=== PATIENT | female | born 1955 | race African-American/Black ===

== ENCOUNTER 2017-12-08 19:36 | Inpatient (IN) | payer BC ==
--- NOTE | 2017-12-08 21:00 | PDOC.FPRHP ---
- History of Present Illness Chief Complaint: Feeling Ill History of Present Illness: 62 yo AA female, w/ pmh of HTN and Depression. comes in not feeling well and having productive cough. Pt reports having bloody productive cough. Reports starting to feel ill monday. Reported having cough. Then started having episodes of nauseas/vomiting. Has episodes of 2 loose stools the last few days as well. Has not been eating much do to vomiting. Says she vomits everytime she eats. Reports feeling feverish and having chills. Pt reports being weak. Having hard time moving around today. Has been feeling generalized tiredness for the last few months. Denies any recent unexpected weight loss. Pt smokes currently. Denies being diagnosed with COPD. No other concerns or complaints at this time - Allergies/Adverse Reactions Allergies Allergy/AdvReac Type Severity Reaction Status Date / Time acetaminophen Allergy Unverified 12/08/17 21:30 [From Darvocet-N] iodine Allergy Rash Unverified 12/08/17 22:38 propoxyphene Allergy Hives Unverified 12/08/17 22:38 [From Darvocet-N] - Home Medications Medication Instructions Recorded Confirmed Type Diltiazem HCl [Cartia XT] 180 mg PO DAILY 12/08/17 12/08/17 History FLUoxetine HCl 60 mg PO DAILY 12/08/17 12/08/17 History Lisinopril/Hydrochlorothiazide 1 tab PO DAILY 12/08/17 12/08/17 History [Lisinopril-Hctz 20-12.5 mg Tab] - History PMHx: HTN, GERD, Depression PSHx: Hysterectomy and Tubal Ligation FHx: Social: Quit smoking 2 weeks ago, Occasional beer, no illicit drug use - Review of Systems General: reports: fever/chills, fatigue. denies: weight/appetite/sleep changes , night sweats Eyes: denies: eye pain, vision changes ENT: denies: nasal congestion, rhinorrhea Respiratory: reports: cough (Bloody cough), shortness of breath. denies: congestion, exercise intolerance, other Cardiovascular: denies: chest pain, palpitation, edema, paroxysmal nocturnal dyspnea, orthopnea Gastrointestinal: reports: nausea, vomiting, diarrhea. denies: constipation, abdominal pain, GI bleeding Genitourinary: denies: incontinence, dysuria, polyuria, discharge Skin: denies: rashes, lesions, jaundice, itching Musculoskeletal: denies: pain, tenderness, stiffness, swelling Neurological: reports: weakness. denies: numbness, syncope, seizure Psychological: reports: depression. denies: anxiety - Vital signs BP: [118/53] HR: [78] RR: [17] Tmax: [99.7] Pox: [97]% on [ra] Wt: [99.7 kg ] - Physical Exam Constitutional: NAD, awake, alert and oriented, well developed -Constitutional: Pt appears ill, weak HEENT: normocephalic and atraumatic, PERRLA, conjunctiva clear -HEENT: mucous membranes dry Neck: supple, trachea midline, no LAD, no thyromegaly, no bruits Chest: no-tender to palpation, no lesions Heart: RRR, no murmurs/rubs/gallops, no edema -Lungs: Mild rales noted bilaterally. Decreased breath movement in all lungs. No wheezing noted Abdomen: soft, bowel sounds present -Abdomen: mildly tender in the left quadrant Musculoskeletal: normal structure, normal tone, ROM grossly normal Neurological: no focal deficit, normal sensation Skin: no rash/lesions, good turgor -Skin: cap refill around 3-4. Heme/Lymphatic: no unusual bruising or bleeding, no purpura, no petechia Psychiatric: normal mood and affect, good judgment and insight, intact recent and remote memory FMR H&P: Results - Labs Result Diagrams: 12/09/17 03:43 12/09/17 03:43 Lab results: Laboratory Tests 12/08/17 12/08/17 12/08/17 14:26 14:26 14:26 WBC 14.9 H Hgb 10.2 L Hct 32.1 L MCV 75.5 L Plt Count 424 H Neutrophils % 74.3 Neutrophils % (Manual) Not Reportable Sodium 135 L Potassium 3.4 L Creatinine 1.60 H Total Bilirubin 2.4 H AST 59 H ALT 63 H Alkaline Phosphatase 122 Troponin I B-Natriuretic Peptide Less than 10.0 Ur Specific Jackman Urine Protein Urine Glucose (UA) Urine Ketones Urine Blood Urine Nitrite Urine Bilirubin Ur Squamous Epith Cells Urine Bacteria Other Casts Salicylates Acetaminophen 12/08/17 12/08/17 12/08/17 14:26 14:26 15:45 WBC Hgb Hct MCV Plt Count Neutrophils % Neutrophils % (Manual) Sodium Potassium Creatinine Total Bilirubin AST ALT Alkaline Phosphatase Troponin I Less than 0.010 B-Natriuretic Peptide Ur Specific Jackman 1.025 Urine Protein > or equal to 300 H Urine Glucose (UA) 100 H Urine Ketones 15 H Urine Blood Trace H Urine Nitrite Positive H Urine Bilirubin Moderate H Ur Squamous Epith Cells 4-6 H Urine Bacteria 2+ H Other Casts 21-50 MIXED CASTS H Salicylates Less than 8.0 L Acetaminophen Less than 6.0 L - Radiology Interpretation CT scan - abdomen Status: image reviewed by me, report reviewed by me (1. No CT evidence of ut calculi or obstruction. Calcified granulomas in liver and spleen. Small hiatal hernia. Sigmoid diverticulosis. 2 cm left adrenal mass) Chest x-ray Status: image reviewed by me, report reviewed by me (RUL opacity. Presumed represent PNA. f/u recommend. Doesn't resolve get CT Evidence of old (inactive) r-sided granulmatous disease) FMR H&P: A/P - Problem List (1) Community acquired pneumonia Current Visit: Yes Status: Acute Code(s): J18.9 - PNEUMONIA, UNSPECIFIED ORGANISM (2) Microcytic anemia Current Visit: Yes Status: Acute Code(s): D50.9 - IRON DEFICIENCY ANEMIA, UNSPECIFIED (3) HTN (hypertension) Current Visit: Yes Status: Acute Code(s): I10 - ESSENTIAL (PRIMARY) HYPERTENSION (4) Depression Current Visit: Yes Status: Acute Code(s): F32.9 - MAJOR DEPRESSIVE DISORDER , SINGLE EPISODE, UNSPECIFIED (5) Mild dehydration Current Visit: Yes Status: Acute Code(s): E86.0 - DEHYDRATION (6) Elevated bilirubin Current Visit: Yes Status: Acute Code(s): R17 - UNSPECIFIED JAUNDICE (7) Elevated LFTs Current Visit: Yes Status: Acute Code(s): R79.89 - OTHER SPECIFIED ABNORMAL FINDINGS OF BLOOD CHEMISTRY (8) SHERI (acute kidney injury) Current Visit: Yes Status: Acute Code(s): N17.9 - ACUTE KIDNEY FAILURE, UNSPECIFIED - Plan Sepsis 2/2 RUL CAP vs UTI - Of note, patient initially presented to [place] ED with fever of 101 and leukocytosis. Blood and urine cultures obtained. - CXR shows RUL opacity and pt does have a history of tobacco abuse. Consider nonurgent CT chest. - Obtain urine Strep and Legionalla Ag, will adjust abx depending on results - Trend CBCs - Continue Ceftriaxone and Azithromycin. Maintenance fluids. Duonebs scheduled q6 hrs. -Having bloody sputum with generalized weakness for 2 months and granulomas noted on CXR and in Liver and Spleen. Concern for TB. AFB smear and culture pending. Quanteferon pending Possible viral gastroenteritis - Maintenance IVF. Zofran PRN. Continue to monitor. . UTI - Pt has fever, leukocytosis, frequency, and UA suggestive of infection. Urine culture obtained. Continue Ceftriaxone. Elevated LFTs including hyperbilirubinemia - CT abd shows granulomas of liver. Obtain direct bilirubin and RUQ US. - Obtain HIV, RPR, and hepatitis panel. -Also concern for TB which we are testing as above SHERI vs CKD - Unclear baseline function. Checking urine Na and Urine Cr at this time. -Pt also mildly dehydrated. Maintenance fluids as above. Daily CMP -Possibly due to infection as well. Urine cx pending -Has casts in UA and bili Mild Dehydration -Plan as above Microcytic anemia - Obtain iron studies Thrombocytosis - Likely reactive, trend. GERD - Famotidine HTN - Resume home meds. Depression -continue home med FULL code PPx: Lovenox for VTE and famotidine for GI. FMR H&P: Upper Level - Pertinent history 62 yo AAF w/ PMH of HTN, GERD, and tobacco abuse presents c/o 3 day history of nausea, vomiting, diarrhea, inability to tolerated PO intake, productive cough, and overall malaise. Pt states that when she woke up 3 days ago she vomited after breakfast and noticed a productive cough with blood tinged sputum. Since then, pt endorses fevers, chills, NVD, suprapubic pain. Pt denies MACIEL, CP, SOB, sick contacts, or recent travel. - Pertinent findings BP 108/66 P 79 R 16 O2 96% on RA T 99.7 Gen: Well nourished, NAD, A&Ox3 CV: RRR, radial pulses equal BL Resp: unlabored, good inspiratory effort, CTAB Abd: BS+, negative sawant's, mild suprapubic TTP - Plan Date/Time: 12/08/172057 I, Rowdy Dong MD, have evaluated this patient and agree with findings/plan as outlined by general internist and physician leader resident. Pertinent changes/additions are listed here. 1. Sepsis 2/2 RUL CAP vs UTI - Of note, patient initially presented to [facility] ED with fever of 101 and leukocytosis. Blood and urine cultures obtained. - CXR shows RUL opacity and pt does have a history of tobacco abuse. Consider nonurgent CT chest. - Obtain urine Strep and Legionalla Ag - Trend CBCs - Continue Ceftriaxone and Azithromycin. Maintenance fluids. Duonebs PRN. -Having bloody sputum with generalized weakness for 2 months and granulomas noted on CXR and in Liver and Spleen. Concern for TB. AFB smear and culture pending. Quanteferon pending 2. Possible viral gastroenteritis - Maintenance IVF. Zofran PRN. Continue to monitor. 3. UTI - Pt has fever, leukocytosis, frequency, and UA suggestive of infection. Urine culture obtained. Continue Ceftriaxone. 4. Elevated LFTs including hyperbilirubinemia - CT abd shows granulomas of liver. Obtain direct bilirubin and RUQ US. - Obtain HIV, RPR, and hepatitis panel. 5. SHERI vs CKD - Unclear baseline function. Obtain urine studies. 6. Microcytic anemia - Obtain iron studies 7. Thrombocytosis - Likely reactive, trend. 8. GERD - Famotidine 9. HTN - Resume home meds. FULL code PPx: Lovenox for VTE and famotidine for GI. Attending Addendum - Attending Addendum Date/Time: 12/09/17 1966 I personally evaluated the patient and discussed the management with Dr. Flower I agree with the History, Examination, Assessment and Plan documented above with any addition or exceptions noted below. Hepatic Granulomas consider extensive differential in this patient setting Tuberculososis,sarcoid,primary biliarry cirrhosis,Q fever,Brucellosis, fungal disease and underlying malignancy will ask for GI consultation. AFB smear and cultures to be obtained.
[2017-12-08] MEDS ORDERED: Ondansetron ODT 4 MG TAB ONE (21:01)
[2017-12-08] MEDS ORDERED: Ondansetron PF 4 MG/2 ML Vial IVP PRN ×2 (22:39→22:52)
[2017-12-08] MEDS ORDERED: Ondansetron ODT 4 MG TAB SL PRN (22:39)
[2017-12-08] MEDS ORDERED: Acetaminophen 325 MG TAB PO PRN ×2 (22:39→22:52)
[2017-12-08] MEDS ORDERED: cefTRIAXone\\ROCEPHIN 1 GM in Sodium Chloride 0.9% 100 ML IVPB SCH (22:52)
[2017-12-08] MEDS ORDERED: Ondansetron ODT 4 MG TAB PO PRN (22:52)
[2017-12-08] MEDS ORDERED: Acetaminophen 650 MG Suppository PR PRN (22:52)
[2017-12-08] MEDS ORDERED: Bisacodyl 10 MG SUPP PR PRN (22:52)
[2017-12-08] MEDS ORDERED: Bisacodyl 5 MG TAB PO PRN (22:52)
[2017-12-08 22:58] VITALS: BMI 38.6
[2017-12-08] MEDS ORDERED: Azithromycin 250 MG TAB PO SCH (23:00)
[2017-12-08 23:36] LABS: Bilirubin, Direct 0.8 mg/dL (0.1-0.3)
[2017-12-08 23:55] LABS: Ferritin 77.95 ng/mL (10-291)
[2017-12-09] MEDS: Sodium Chloride 0.9% 1,000 ML IV SCH ×3 (00:14→21:18)
[2017-12-09 00:30] LABS: HIV (1/2) Antibody/Antigen Non-Reactive (NonReactive); HIV 1/2 INDEX 0.11 S/CO (<1.00)
[2017-12-09 04:02] LABS: #Lymphocytes 1.6 thou/uL (1.20-3.40); #Monocytes 1.1 thou/uL (0.11-0.59); #Neutrophils 9.5 thou/uL (1.40-6.50); %Basophils 0.4 % (0.0-1.0); %Eosinophils 0.3 % (0.0-10.0); %Lymphocytes 12.8 % (21.0-51.0); %Monocytes 8.6 % (0.0-10.0); %Neutrophils 77.9 % (42.0-75.0); Hemoglobin 8.8 g/dL (12.0-16.0); Mean Corpuscular HGB CONC 33.1 g/dL (32.0-36.0); Mean Corpuscular Hemoglobin 26.2 pg (27.0-31.0); Mean Corpuscular Volume 79.1 fl (81.0-99.0); Mean Platelet Volume 7.4 fL (7.4-10.4); Platelet Count 374 thou/uL (130-400); RBC Distribution Width 16.6 % (11.5-14.5); Red Blood Cell (RBC) Count 3.35 mill/uL (4.20-5.40); White Blood Cell (WBC) Count 12.2 thou/uL (4.8-10.8)
[2017-12-09 04:19] LABS: ALT (SGPT) 61 U/L (8-55); AST (SGOT) 50 U/L (5-34); Albumin 3.4 g/dL (3.4-4.8); Alkaline Phosphatase 109 U/L (40-150); Anion Gap 12 mmol/L (10-20); BUN (Urea Nitrogen) 15 mg/dL (9.8-20.1); Bilirubin, Total 1.8 mg/dL (0.2-1.2); Calc. Creatinine Clearance 65 mL/min (70-130); Calcium 8.8 mg/dL (7.8-10.44); Carbon Dioxide 22 mmol/L (23-31); Chloride 101 mmol/L (98-107); Estimated GFR-MDRD 46; Globulin 3.4 g/dL (2.4-3.5); Glucose 117 mg/dL (80-115); Potassium 3.1 mmol/L (3.5-5.1); Protein, Total 6.8 g/dL (6.0-8.3); Sodium 132 mmol/L (136-145)
[2017-12-09] MEDS ORDERED: cefTRIAXone\\ROCEPHIN 1 GM, Syringe 0.4 ML in Sterile Water 9.6 ML SLOW IVP SCH (06:00)
[2017-12-09 06:40] LABS: Creatinine, Urine 88.62 mg/dL (47-110)
[2017-12-09 07:12] LABS: Legionella Urinary Ag Negative (Negative); Strep pneumo Urine Ag NEGATIVE (NEGATIVE)
--- NOTE | 2017-12-09 08:47 | ULT ---
ABDOMINAL ULTRASOUND: DATE: 12/09/17. PROVIDED CLINICAL HISTORY: Elevated liver enzymes. FINDINGS: The liver demonstrates no evidence for mass or intrahepatic biliary ductal dilatation. Visualized pa ncreas, IVC, and abdominal aorta appear normal. The kidneys demonstrate no hydronephrosis or mass. The spleen is not enlarged and demonstrates no focal abnormality. Gallbladder demonstrates no stones , wall thickening, or pericholecystic fluid. The common duct is mildly prominent, measuring about 7 mm. IMPRESSION: Mildly prominent common duct, nonspecific. If there is concern for biliary obstructive change, consi maylin MRCP. POS: [facility]
[2017-12-09] MEDS: FLUoxetine HCl 20 MG CAP PO SCH (09:31)
[2017-12-09] MEDS: Lisinopril/Hydrochlorothiazide 20 mg/12.5 mg Tablet PO SCH (09:31)
--- NOTE | 2017-12-09 13:30 | PDOC.FM ---
- Subjective Subjective: No complaints this am. Feels better. Has not vomited since yesterday. - Objective MAR Reviewed: Yes Vital Signs & Weight: Vital Signs (12 hours) Temp Pulse Resp BP BP Pulse Ox 12/09/17 09:31 81 115/64 12/09/17 08:00 98.3 F 81 20 115/64 95 12/09/17 07:12 88 16 95 Weight Weight 98.883 kg Result Diagrams: 12/09/17 03:43 12/09/17 03:43 <Kateryna Kathleen - Last Filed: 12/09/17 13:22> - Objective Vital Signs & Weight: Vital Signs (12 hours) Temp Pulse Resp BP BP Pulse Ox 12/09/17 13:38 84 18 98 12/09/17 09:31 81 115/64 12/09/17 08:00 98.3 F 84 18 115/64 98 12/09/17 07:12 88 16 95 Weight Weight 98.883 kg I&O: 12/08/17 12/09/17 12/10/17 06:59 06:59 06:59 Intake Total 240 Balance 240 Result Diagrams: 12/09/17 13:44 12/09/17 03:43 <Jorge Hendricks - Last Filed: 12/09/17 17:07> Phys Exam - Physical Examination Constitutional: NAD HEENT: PERRLA, moist MMs Respiratory: no wheezing crackles right side Cardiovascular: RRR, no significant murmur Gastrointestinal: soft, non-tender, no distention, positive bowel sounds Musculoskeletal: no edema, pulses present Neurological: non-focal, normal sensation Psychiatric: normal affect, A&O x 3 Skin: no rash, cap refill <2 seconds <Kateryna Kathleen - Last Filed: 12/09/17 13:22> Dx/Plan (1) Hyperbilirubinemia Code(s): E80.6 - OTHER DISORDERS OF BILIRUBIN METABOLISM Status: Acute (2) Granulomatous disease Code(s): D71 - FUNCTIONAL DISORDERS OF POLYMORPHONUCLEAR NEUTROPHILS Status: Acute (3) Adrenal mass Status: Acute (4) SHERI (acute kidney injury) Code(s): N17.9 - ACUTE KIDNEY FAILURE, UNSPECIFIED Status: Acute (5) Community acquired pneumonia Code(s): J18.9 - PNEUMONIA, UNSPECIFIED ORGANISM Status: Acute (6) Depression Code(s): F32.9 - MAJOR DEPRESSIVE DISORDER, SINGLE EPISODE, UNSPECIFIED Status : Acute (7) Elevated LFTs Code(s): R79.89 - OTHER SPECIFIED ABNORMAL FINDINGS OF BLOOD CHEMISTRY Status : Acute (8) HTN (hypertension) Code(s): I10 - ESSENTIAL (PRIMARY) HYPERTENSION Status: Acute (9) Microcytic anemia Code(s): D50.9 - IRON DEFICIENCY ANEMIA, UNSPECIFIED Status: Acute (10) Mild dehydration Code(s): E86.0 - DEHYDRATION Status: Acute - Plan Plan: Sepsis 2/2 RUL CAP vs UTI -Concern for tb, AFB smear and culture pending. Quanteferon pending - Of note, patient initially presented to [place] ED with fever of 101 and leukocytosis. Blood and urine cultures obtained. - CXR shows RUL opacity and right hilar lymph node prominence -urine Strep and Legionalla Ag negative - Continue Ceftriaxone and Azithromycin. Maintenance fluids. Duonebs scheduled q6 hrs. Hyperbilirubinemia and elevated LFTs -direct and indirect bilirubin elevated -Abdominal US showed marked prominence of the common bile duct -Will order hemolysis labs due to elevated indirect bilirubin (haptoglobin, LDH , reticulocyte count, peripheral smear). -Abdominal CT showed calcified granulomas-ordered HIV, RPR, Hepatitis panel -GI consulted. Appreciate recommendations Adrenal Mass- -Found incidentally. Adrenal protocol CT with and without contrast recommended nonemergently. Possible viral gastroenteritis - Maintenance IVF. Zofran PRN. Continue to monitor. UTI - Pt has fever, leukocytosis, frequency, and UA suggestive of infection. Urine culture obtained. Continue Ceftriaxone. SHERI vs CKD - Unclear baseline function. Improved with fluids. -Pt also mildly dehydrated. Maintenance fluids as above. Daily CMP Mild Dehydration -Plan as above Microcytic anemia - Iron low, Ferritin low normal, TIBC wnl-->may be early signs of iron deficient anemia Thrombocytosis - Likely reactive, trend. GERD - Famotidine HTN - Resume home meds. Depression -continue home med <Kateryna Kathleen - Last Filed: 12/09/17 13:22> (1) Community acquired pneumonia Code(s): J18.9 - PNEUMONIA, UNSPECIFIED ORGANISM Status: Acute (2) Microcytic anemia Code(s): D50.9 - IRON DEFICIENCY ANEMIA, UNSPECIFIED Status: Acute (3) HTN (hypertension) Code(s): I10 - ESSENTIAL (PRIMARY) HYPERTENSION Status: Acute (4) Depression Code(s): F32.9 - MAJOR DEPRESSIVE DISORDER, SINGLE EPISODE, UNSPECIFIED Status : Acute (5) Mild dehydration Code(s): E86.0 - DEHYDRATION Status: Acute (6) Elevated bilirubin Code(s): R17 - UNSPECIFIED JAUNDICE Status: Acute (7) Elevated LFTs Code(s): R79.89 - OTHER SPECIFIED ABNORMAL FINDINGS OF BLOOD CHEMISTRY Status : Acute (8) SHERI (acute kidney injury) Code(s): N17.9 - ACUTE KIDNEY FAILURE, UNSPECIFIED Status: Acute <Jorge Hendricks - Last Filed: 12/09/17 17:07> Attending Addendum - Attending Addendum Date/Time: 12/09/17 2595 I personally evaluated the patient and discussed the management with Dr. Kathleen I agree with the History, Examination, Assessment and Plan documented above with any addition or exceptions noted below.. R/O Tuberculosis Patient in respiratory isolation.Consulted GI for recommendation regard abnormal hepatic finding lab and US CT with granulomas patient states has had prior screening colonoscopy not sure timeframe. <Jorge Hendricks - Last Filed: 12/09/17 17:07>
[2017-12-09 14:00] LABS: Reticulocyte Count 1.7 % (0.5-1.5)
[2017-12-09 14:53] LABS: Anisocytosis SLIGHT = 6-15 cells (100X) (0-5/hpf); Band 2 % (5-11); Hemoglobin 8.5 g/dL (12.0-16.0); Hypochromia SLIGHT = 6-15 cells (100X) (0-5/hpf); Lymphocytes 9 % (21-51); MDiff Complete? YES; Mean Corpuscular HGB CONC 33.3 g/dL (32.0-36.0); Mean Corpuscular Hemoglobin 26.2 pg (27.0-31.0); Mean Corpuscular Volume 78.7 fl (81.0-99.0); Mean Platelet Volume 7.3 fL (7.4-10.4); Monocytes 5 % (0-10); Neutrophil 84 % (42-75); PLT Morphology Comment Appears Adequate; Platelet Count 389 thou/uL (130-400); RBC Distribution Width 16.8 % (11.5-14.5); Red Blood Cell (RBC) Count 3.25 mill/uL (4.20-5.40); White Blood Cell (WBC) Count 8.4 thou/uL (4.8-10.8)
[2017-12-09] MEDS: cefTRIAXone\\ROCEPHIN 1 GM, Syringe 0.4 ML in Sterile Water 9.6 ML SLOW IVP SCH (18:42)
--- NOTE | 2017-12-09 20:17 | CON ---
DATE OF CONSULTATION: 12/09/2017 REASON FOR CONSULTATION: Elevated LFTs, abnormal GI imaging. CONSULTING PHYSICIAN: Kateryna Kathleen MD HISTORY OF PRESENT ILLNESS: The patient is a 62-year-old -Dominican female with past medical h istory of hypertension, depression and GERD, presenting with complaints of nausea, vomiting, and hemo ptysis. She states that she was in her usual state of health until approximately 3 days ago when she began to experience acute onset of nausea, vomiting, and diarrhea. She would have approximately 3-4 episodes of nonbloody emesis per day that was usually 30-45 minutes after she would eat anything. T his was also associated with approximately 2-3 liquid bowel movements per day over the same time howard od with no overt blood seen in her stool. She also endorses increased periumbilical abdominal pain d uring the same time. Characterizes a cramping type sensation, nonradiating, intermittent with a maxi mum severity of approximately 5/10. There was no clear alleviating or exacerbating factors for this abdominal pain. However, yesterday she did experience increased nausea and vomiting and after a part icular episode of vomiting in the morning, she had profound weakness and what sounds like a presyncop al event that prompted her to seek healthcare assistance in the [place] ER. While in the ER, she was noted to have a significant anemia as well as observation that she was having hemoptysis and elev ated LFTs, which prompted admission to [place] [facility]. After administration of antiemetics and antidi arrheal medications, she has had no further episodes of nausea, vomiting or diarrhea. However, she c ontinues to have coughing episodes with blood tinged sputum. She currently denies any nausea, vomiti ng, fever, GI bleeding, dysphagia, odynophagia, jaundice, encephalopathy, lower extremity edema/swell ing or increased swelling in her abdomen. REVIEW OF SYSTEMS: A 10-category review of systems was obtained with all responses negative except f or those listed in the HPI. PAST MEDICAL HISTORY: As per HPI. PAST SURGICAL HISTORY: Hysterectomy and bilateral tubal ligation. FAMILY HISTORY: Lung cancer (mother), diabetes, denies any GI malignancy. SOCIAL HISTORY: Quit smoking approximately 2 weeks ago. Drinks approximately 2-3 drinks every week. Denies any illicit drug use. OUTPATIENT MEDICATIONS: Reviewed. ALLERGIES: DARVOCET, IODINE, PROPOXYPHENE. PHYSICAL EXAMINATION: VITAL SIGNS: Temperature 98.3, pulse 84, blood pressure 115/64, respiratory rate 18, satting 98% on room air. GENERAL: The patient sitting in a chair at bedside, in no acute distress. No conversational dyspnea . Alert and oriented x4. NECK: Supple. No JVD noted. CARDIOVASCULAR: Regular rate and rhythm with no discernible murmurs, gallops or rubs. RESPIRATORY: Clear to auscultation bilaterally with no discernible wheezes or rales. ABDOMEN: Normoactive bowel sounds, soft, nontender, and nondistended. EXTREMITIES: No cyanosis, clubbing or edema. LABORATORY DATA: CBC with a white blood cell count 12.2, hemoglobin 8.8, hematocrit 26.4, and platel ets 374. Chemistry with a sodium of 132, potassium 3.1, chloride 101, CO2 of 22, BUN 15, creatinine 1.39, glucose 117, AST 50, ALT 61, alkaline phosphatase 109, total bilirubin 1.8, direct bilirubin 0. 8, albumin 3.4. Iron 26, TIBC 310, ferritin 77, LDH 325. IMAGING DATA: CT of the abdomen and pelvis obtained on 12/08/2017 showed patchy infiltrates in the l ower lung mendez, calcified granulomas were also seen in the liver and spleen with no calcified galls tones seen. There was no pericolonic inflammatory changes nor any abnormalities in the kidneys, uret ers, or urinary bladder. A right upper quadrant ultrasound obtained on 12/09/2017 did not show any e vidence of mass or intrahepatic biliary ductal dilatation. The spleen was not enlarged and demonstra cielo no focal abnormality. The gallbladder did not show any abnormality as well, but the common bile duct did measure approximately 7 mm in diameter. ASSESSMENT AND PLAN: The patient is a 62-year-old -Dominican female with past medical history of hypertension, depression, and gastroesophageal reflux disease, presenting with abnormal GI imaging and elevated liver function tests. Abnormal GI imaging/abnormal liver function tests. The patient is presenting with the acute onset of nausea, vomiting, diarrhea, and hemoptysis within the last 3-4 days associated with subjective fever s and chills. She denies any overt gastrointestinal blood loss and denies any prior history of liver disease; however, CT abdomen and pelvis obtained on 12/08/2017 showed evidence of calcified granulom as within the liver and the spleen concerning for possible infective process. Given the constellatio n of symptoms, the imaging and symptoms are most consistent with an active pulmonary TB infection wit h spread to both the liver and the spleen. However, differential could include syphilis, histoplasmo sis, sarcoidosis, polyarteritis nodosa, Mj's granulomatosis, primary biliary cirrhosis (less lik lemuel), liver and splenic abscesses (much less likely given her current clinical condition) and/or perla gnancy (less likely). RECOMMENDATIONS: 1. We would continue infectious workup to include evaluation for tuberculosis and syphilis. We woul d also include histoplasmosis as a possible source. 2. With the indirect hemoglobin and hyperbilirubinemia, intravascular hemolysis cannot be ruled out. We would obtain hemolysis labs for possible generation of these labs. 3. The current labs are not indicative of an obstructive process with the common bile duct at the up per limit of normal at 7 mm. Choledocholithiasis is unlikely at this point. 4. We would also obtain an angiotensin converting enzyme lab as well as C-ANCA and P-ANCA for sarcoi dosis, Mj's and polyarteritis nodosa respectively. 5. If the above workup is negative, would then consider proceeding to a full liver workup to obtain serologies for autoimmune hepatitis, Gabriel disease, alpha 1 antitrypsin deficiency. We will continue to follow. Please call with any questions.
[2017-12-09] MEDS: Azithromycin 250 MG TAB PO SCH (21:18)
[2017-12-10] MEDS ORDERED: Potassium Chloride 20 MEQ TAB PO SCH (05:00)
--- NOTE | 2017-12-10 07:03 | PDOC.FM ---
- Subjective Subjective: No acute complaints this morning and no acute events overnight. States she feels better. - Objective MAR Reviewed: Yes Vital Signs & Weight: Vital Signs (12 hours) Temp Pulse Resp BP Pulse Ox 12/10/17 00:03 91 16 94 L 12/10/17 00:00 99.6 F 88 18 145/68 H 99 12/09/17 20:00 99.0 F 84 18 138/58 L 97 12/09/17 19:15 85 16 96 Weight Weight 98.883 kg I&O: 12/09/17 12/10/17 12/11/17 06:59 06:59 06:59 Intake Total 480 Balance 480 Result Diagrams: 12/09/17 13:44 12/10/17 10:20 <Kateryna Kathleen - Last Filed: 12/10/17 13:21> - Objective Vital Signs & Weight: Vital Signs (12 hours) Temp Pulse Resp BP BP Pulse Ox 12/10/17 12:57 85 16 98 12/10/17 09:30 79 147/68 H 12/10/17 08:00 98.5 F 79 18 147/68 H 100 12/10/17 07:24 83 18 98 Weight Weight 98.883 kg I&O: 12/09/17 12/10/17 12/11/17 06:59 06:59 06:59 Intake Total 480 Balance 480 Result Diagrams: 12/09/17 13:44 12/10/17 10:20 <Jorge Hendricks - Last Filed: 12/10/17 14:43> Phys Exam - Physical Examination Constitutional: NAD HEENT: PERRLA, moist MMs Respiratory: no wheezing, no rales, clear to auscultation bilateral Cardiovascular: RRR, no significant murmur Gastrointestinal: soft, non-tender, no distention Musculoskeletal: no edema Psychiatric: normal affect, A&O x 3 Skin: no rash <Kateryna Kathleen - Last Filed: 12/10/17 13:21> Dx/Plan (1) Hyperbilirubinemia Code(s): E80.6 - OTHER DISORDERS OF BILIRUBIN METABOLISM Status: Acute (2) Granulomatous disease Code(s): D71 - FUNCTIONAL DISORDERS OF POLYMORPHONUCLEAR NEUTROPHILS Status: Acute (3) Adrenal mass Status: Acute (4) SHERI (acute kidney injury) Code(s): N17.9 - ACUTE KIDNEY FAILURE, UNSPECIFIED Status: Acute (5) Community acquired pneumonia Code(s): J18.9 - PNEUMONIA, UNSPECIFIED ORGANISM Status: Acute (6) Depression Code(s): F32.9 - MAJOR DEPRESSIVE DISORDER, SINGLE EPISODE, UNSPECIFIED Status : Acute (7) Elevated LFTs Code(s): R79.89 - OTHER SPECIFIED ABNORMAL FINDINGS OF BLOOD CHEMISTRY Status : Acute (8) HTN (hypertension) Code(s): I10 - ESSENTIAL (PRIMARY) HYPERTENSION Status: Acute (9) Microcytic anemia Code(s): D50.9 - IRON DEFICIENCY ANEMIA, UNSPECIFIED Status: Acute (10) Mild dehydration Code(s): E86.0 - DEHYDRATION Status: Acute - Plan Plan: Plan: Sepsis 2/2 RUL CAP vs UTI -Concern for tb, AFB smear and culture pending. Quanteferon pending -We will continue abx and broaden our infectious work-up to include: histoplasmosis, which is pending. -HIV negative, Syphilis labs pending - Blood and urine cultures NGTD - CXR shows RUL opacity and right hilar lymph node prominence -urine Strep and Legionalla Ag negative - Continue Ceftriaxone and Azithromycin. Maintenance fluids. Duonebs scheduled q6 hrs. Hyperbilirubinemia and Granulomatous disease -direct and indirect bilirubin elevated -CBD 7mm-->unlikely obstructive process -Hemolysis labs: LDH elevated and retic count; pending haptoglobin and peripheral smear -Will order a PANCA and CANCA to evaluate for sarcoid vs wegeners vs polyarteritis nodosa -If above workup negative will consider autoimmune hepatitis, wilsons disease, and alpha 1 antitrypsin -GI consulted. Appreciate recommendations above. Adrenal Mass- -Found incidentally. Adrenal protocol CT with and without contrast recommended nonemergently. Possible viral gastroenteritis - Maintenance IVF. Zofran PRN. Continue to monitor. UTI - Pt has fever, leukocytosis, frequency, and UA suggestive of infection. Urine culture obtained. Continue Ceftriaxone. SHERI vs CKD - Unclear baseline function. Improved with fluids. -Pt also mildly dehydrated. Maintenance fluids as above. Daily CMP Mild Dehydration -Plan as above Microcytic anemia - Iron low, Ferritin low normal, TIBC wnl-->may be early signs of iron deficient anemia Thrombocytosis - Likely reactive, trend. GERD - Famotidine HTN - Resume home meds. Depression -continue home med <Kateryna Kathleen - Last Filed: 12/10/17 13:21> (1) Community acquired pneumonia Code(s): J18.9 - PNEUMONIA, UNSPECIFIED ORGANISM Status: Acute (2) Microcytic anemia Code(s): D50.9 - IRON DEFICIENCY ANEMIA, UNSPECIFIED Status: Acute (3) HTN (hypertension) Code(s): I10 - ESSENTIAL (PRIMARY) HYPERTENSION Status: Acute (4) Depression Code(s): F32.9 - MAJOR DEPRESSIVE DISORDER, SINGLE EPISODE, UNSPECIFIED Status : Acute (5) Mild dehydration Code(s): E86.0 - DEHYDRATION Status: Acute (6) Elevated bilirubin Code(s): R17 - UNSPECIFIED JAUNDICE Status: Acute (7) Elevated LFTs Code(s): R79.89 - OTHER SPECIFIED ABNORMAL FINDINGS OF BLOOD CHEMISTRY Status : Acute (8) SHERI (acute kidney injury) Code(s): N17.9 - ACUTE KIDNEY FAILURE, UNSPECIFIED Status: Acute <Jorge Hendricks - Last Filed: 12/10/17 14:43> Attending Addendum - Attending Addendum Date/Time: 12/10/17 1440 I personally evaluated the patient and discussed the management with Dr. Kathleen I agree with the History, Examination, Assessment and Plan documented above with any addition or exceptions noted below. Complex patient appreciate GI recommendations. Patient may benefit from further diagnostic imaging when active Tuberculosis ruled in or out. Patient overall clinically improved and stressed importance of continued stay for appropriate work up and treatment. <Jorge Hendricks - Last Filed: 12/10/17 14:43>
[2017-12-10 08:10] LABS: Hepatitis A Total ABS Positive (Negative)
[2017-12-10] MEDS: FLUoxetine HCl 20 MG CAP PO SCH (09:29)
[2017-12-10] MEDS: Sodium Chloride 0.9% 1,000 ML IV SCH ×2 (09:29→14:39)
[2017-12-10] MEDS: Lisinopril/Hydrochlorothiazide 20 mg/12.5 mg Tablet PO SCH (09:30)
[2017-12-10 11:23] LABS: Potassium 3.1 mmol/L (3.5-5.1)
[2017-12-10] MEDS: cefTRIAXone\\ROCEPHIN 1 GM, Syringe 0.4 ML in Sterile Water 9.6 ML SLOW IVP SCH (17:20)
[2017-12-10] MEDS: Azithromycin 250 MG TAB PO SCH (20:47)
[2017-12-10 22:49] LABS: Syphilis Antibody INDETERMINATE (Nonreactive); Syphilis Titer Non-Reactive (Negative)
--- NOTE | 2017-12-10 23:42 | PRG ---
DATE OF SERVICE: 12/10/2017 REASON FOR CONSULTATION: Elevated LFTs, abnormal GI imaging. SUBJECTIVE: Patient states that she is feeling much better today with decreased cough, although she does state that her acid reflux has come back with mild heartburn at the substernal area. She also d id have one episode of loose/liquid stool concerning from return of her diarrhea. Otherwise, she den ies any vomiting, fevers, chills, abdominal pain, odynophagia, dysphagia, or constipation. OBJECTIVE: VITAL SIGNS: Temperature 98.4, pulse 75, blood pressure 152/69, respiratory rate 22, satting 97% on room air. GENERAL: Patient sitting at bedside in no acute distress. Alert and oriented x4. CARDIOVASCULAR: Regular rate and rhythm. RESPIRATORY: Clear to auscultation bilaterally. ABDOMEN: Normoactive bowel sounds, soft, nontender, nondistended. EXTREMITIES: No cyanosis, clubbing or edema. LABORATORY DATA: CBC with a white blood cell count of 8.4, hemoglobin 8.5, hematocrit 25.6, platelet s 389. Chemistry with sodium of 132, potassium 3.1, chloride 101, CO2 of 22, BUN 15, creatinine 1.39 . IMAGING DATA: No current GI imaging is available for review. ASSESSMENT AND PLAN: Patient is a 62-year-old -H[place] female with past medical history of h ypertension, depression, and gastroesophageal reflux disease presenting with abnormal gastrointestina l imaging and elevated liver function test. Abnormal gastrointestinal imaging/abnormal liver function test. Patient initially presented with chris sea, vomiting, diarrhea, hemoptysis, subjective fevers, and chills for 3-4 days prior to admission. Imaging obtained on admission with a CT abdomen and pelvis showed evidence of calcified granulomas wi thin the liver and the spleen concerning for possible infective process. Still given her current con stellation of symptoms, imaging and labs it is most consistent with a pulmonary TB infection with pos sible spread to both the liver and the spleen. However, microbiology results have come back with scr eening test for acid fast bacilli negative thus far. Differential could also include syphilis, histo plasmosis, sarcoidosis, polyarteritis nodosa, Mj's granulomatosis, and possible splenic abscesse s with workup pending at this time. RECOMMENDATIONS: 1. We will continue to follow up on Infectious workup. 2. We will also follow up on hemolysis labs given slightly elevated total bilirubin. We will draw r epeat comprehensive metabolic profile tomorrow to evaluate for current levels. 3. We will add patient's pantoprazole back for worsening acid reflux. We will continue to follow. Please call with any questions.
[2017-12-11 04:36] LABS: #Basophils 0.1 thou/uL (0.0-0.2); #Eosinphils 0.2 thou/uL (0.0-0.7); #Lymphocytes 2.3 thou/uL (1.20-3.40); #Monocytes 0.8 thou/uL (0.11-0.59); #Neutrophils 4.7 thou/uL (1.40-6.50); %Eosinophils 2.8 % (0.0-10.0); %Lymphocytes 28.2 % (21.0-51.0); %Neutrophils 58.1 % (42.0-75.0); Hemoglobin 8.2 g/dL (12.0-16.0); Mean Corpuscular HGB CONC 32.7 g/dL (32.0-36.0); Mean Corpuscular Hemoglobin 25.7 pg (27.0-31.0); Mean Corpuscular Volume 78.6 fl (81.0-99.0); Platelet Count 423 thou/uL (130-400); RBC Distribution Width 16.7 % (11.5-14.5); Red Blood Cell (RBC) Count 3.19 mill/uL (4.20-5.40); White Blood Cell (WBC) Count 8.1 thou/uL (4.8-10.8)
[2017-12-11 05:05] LABS: ALT (SGPT) 164 U/L (8-55); AST (SGOT) 137 U/L (5-34); Albumin 3.2 g/dL (3.4-4.8); Alkaline Phosphatase 143 U/L (40-150); Anion Gap 12 mmol/L (10-20); BUN (Urea Nitrogen) 5 mg/dL (9.8-20.1); Bilirubin, Total 0.8 mg/dL (0.2-1.2); Calc. Creatinine Clearance 117 mL/min (70-130); Calcium 9.1 mg/dL (7.8-10.44); Carbon Dioxide 23 mmol/L (23-31); Chloride 106 mmol/L (98-107); Estimated GFR-MDRD Greater than 90; Globulin 3.2 g/dL (2.4-3.5); Glucose 96 mg/dL (80-115); Potassium 3.3 mmol/L (3.5-5.1); Protein, Total 6.4 g/dL (6.0-8.3); Sodium 138 mmol/L (136-145)
[2017-12-11] MEDS: Sodium Chloride 0.9% 1,000 ML IV SCH ×2 (06:30→12:17)
--- NOTE | 2017-12-11 09:26 | PDOC.FM ---
- Subjective Subjective: Wants to go home. Anxious to go home. States that feels well. - Objective MAR Reviewed: Yes Vital Signs & Weight: Vital Signs (12 hours) Temp Pulse Resp BP Pulse Ox 12/11/17 08:00 98.3 F 85 16 173/96 H 95 12/10/17 23:12 79 16 96 Weight Weight 98.883 kg I&O: 12/10/17 12/11/17 12/12/17 06:59 06:59 06:59 Intake Total 480 1830 Balance 480 1830 Result Diagrams: 12/11/17 03:45 12/11/17 03:45 <Kateryna Kathleen - Last Filed: 12/11/17 12:16> - Objective Vital Signs & Weight: Vital Signs (12 hours) Temp Pulse Resp BP BP Pulse Ox 12/11/17 10:02 85 173/76 H 12/11/17 08:00 98.3 F 85 16 173/96 H 95 Weight Weight 98.883 kg I&O: 12/10/17 12/11/17 12/12/17 06:59 06:59 06:59 Intake Total 480 1830 Balance 480 1830 Result Diagrams: 12/11/17 03:45 12/11/17 03:45 <Ann Francois - Last Filed: 12/11/17 15:26> Phys Exam - Physical Examination Constitutional: NAD HEENT: PERRLA, moist MMs Respiratory: no wheezing, no rales, clear to auscultation bilateral Cardiovascular: RRR, no significant murmur Gastrointestinal: soft Musculoskeletal: no edema Neurological: non-focal Psychiatric: normal affect, A&O x 3 Skin: no rash <Kateryna Kathleen - Last Filed: 12/11/17 12:16> Dx/Plan (1) Hyperbilirubinemia Code(s): E80.6 - OTHER DISORDERS OF BILIRUBIN METABOLISM Status: Acute (2) Granulomatous disease Code(s): D71 - FUNCTIONAL DISORDERS OF POLYMORPHONUCLEAR NEUTROPHILS Status: Acute (3) Adrenal mass Status: Acute (4) SHERI (acute kidney injury) Code(s): N17.9 - ACUTE KIDNEY FAILURE, UNSPECIFIED Status: Acute (5) Community acquired pneumonia Code(s): J18.9 - PNEUMONIA, UNSPECIFIED ORGANISM Status: Acute (6) Depression Code(s): F32.9 - MAJOR DEPRESSIVE DISORDER, SINGLE EPISODE, UNSPECIFIED Status : Acute (7) Elevated LFTs Code(s): R79.89 - OTHER SPECIFIED ABNORMAL FINDINGS OF BLOOD CHEMISTRY Status : Acute (8) HTN (hypertension) Code(s): I10 - ESSENTIAL (PRIMARY) HYPERTENSION Status: Acute (9) Microcytic anemia Code(s): D50.9 - IRON DEFICIENCY ANEMIA, UNSPECIFIED Status: Acute (10) Mild dehydration Code(s): E86.0 - DEHYDRATION Status: Acute - Plan Plan: Sepsis 2/2 RUL CAP vs UTI -Concern for tb, AFB smear and culture 2/3 negative. Quanteferon pending. -We will continue abx and broaden our infectious work-up to include: histoplasmosis, which is pending. -HIV negative, RPR negative. Urine Strep and Legionalla Ag negative - Blood and urine cultures NGTD - CXR shows RUL opacity and right hilar lymph node prominence - Continue Ceftriaxone and Azithromycin. Maintenance fluids. Duonebs scheduled q6 hrs. Hyperbilirubinemia and Granulomatous disease -direct and indirect bilirubin elevated -CBD 7mm-->unlikely obstructive process -Hemolysis labs: LDH elevated and retic count; pending haptoglobin and peripheral smear -Pending PANCA and CANCA to evaluate for sarcoid vs wegeners vs polyarteritis nodosa -If above workup negative will consider autoimmune hepatitis, wilsons disease, and alpha 1 antitrypsin -GI consulted. Appreciate recommendations above. Adrenal Mass- -Found incidentally. Adrenal protocol CT with and without contrast recommended nonemergently. Possible viral gastroenteritis - Maintenance IVF. Zofran PRN. Continue to monitor. UTI - Pt has fever, leukocytosis, frequency, and UA suggestive of infection. Urine culture NGTD. Continue Ceftriaxone. SHERI vs CKD - Unclear baseline function. Improved with fluids. Mild Dehydration -Plan as above Microcytic anemia - Iron low, Ferritin low normal, TIBC wnl-->may be early signs of iron deficient anemia -Will start PO iron Thrombocytosis - Likely reactive, trend. GERD - Famotidine HTN - Resume home meds. Depression -continue home med <Kateryna Kathleen - Last Filed: 12/11/17 12:16> Attending Addendum - Attending Addendum Date/Time: 12/11/17 1583 I personally evaluated the patient and discussed the management with Dr. Kathleen. I agree with the History, Examination, Assessment and Plan documented above with any addition or exceptions noted below. Multiple tests are still pending in workup for granulomas. Pt is feeling better on antibiotics. Last AFB sent this morning. Quantiferon gold is pending. Continue antibiotics and supportive care. Appreciate GI recs. <Ann Francois - Last Filed: 12/11/17 15:26>
[2017-12-11] MEDS ORDERED: Potassium Chloride 20 MEQ TAB PO SCH (09:30)
[2017-12-11] MEDS: Lisinopril/Hydrochlorothiazide 20 mg/12.5 mg Tablet PO SCH (10:02)
[2017-12-11] MEDS: FLUoxetine HCl 20 MG CAP PO SCH ×3 (11:09→21:16)
[2017-12-11 15:19] LABS: Hep B Surface AG-Rflx Sendout Negative (Negative); Hepatitis B Core IgM AB Negative (Negative); Hepatitis B Core Total Negative (Negative); Hepatitis B Surface AB-Sendout Non Reactive (.)
[2017-12-11] MEDS: Ferrous Sulfate 325 MG TAB PO SCH (17:28)
[2017-12-11] MEDS: cefTRIAXone\\ROCEPHIN 1 GM, Syringe 0.4 ML in Sterile Water 9.6 ML SLOW IVP SCH (17:29)
[2017-12-11] MEDS: Azithromycin 250 MG TAB PO SCH (21:16)
--- NOTE | 2017-12-11 23:03 | PRG ---
DATE OF SERVICE: 12/11/2017 REASON FOR CONSULTATION: Elevated LFTs, abnormal GI imaging. SUBJECTIVE: The patient states that she is feeling much better today with complete resolution of her cough and difficulty breathing. She has had no further episodes of fever over the last 24-48 hours. She also states that her diarrhea has improved with no further episodes during this admission. OBJECTIVE: VITAL SIGNS: Temperature 98.1, pulse 79, blood pressure 115/61, respiratory rate 20, satting 99% on room air. GENERAL: The patient was sitting at bedside in no acute distress. Alert and oriented x4. CARDIOVASCULAR: Regular rate and rhythm. RESPIRATORY: Clear to auscultation bilaterally. ABDOMEN: Normoactive bowel sounds, soft, nontender, nondistended. EXTREMITIES: No cyanosis, clubbing, or edema. LABORATORY DATA: CBC with a white blood cell count of 8.1, hemoglobin 8.2, hematocrit 25.1, platelet s 423. Chemistry with a sodium of 138, potassium 3.3, chloride 106, CO2 of 23, BUN 5, creatinine 0.7 7, glucose 96. IMAGING DATA: No current GI imaging is available for review. ASSESSMENT AND PLAN: The patient is a 62-year-old -Turkmen female with past medical history of hypertension, depression, and gastroesophageal reflux disease presenting with abnormal GI imaging and elevated liver function tests. Abnormal GI imaging/abnormal liver function tests. Patient initially presenting with nausea, vomitin g, diarrhea, hemoptysis, subjective fevers and chills for 3 days prior to admission. However, during this admission with more conservative management and antibiotic administration, she has had essentia lly complete resolution of all of the above symptoms; however, GI imaging showed the presence of mult iple calcified granulomas within the liver and the spleen concerning for possible infective process. The screening test for tuberculosis have been negative thus far. However, the QuantiFERON TB is sti ll pending. Further testing for possible liver granuloma including testing for histoplasmosis, sarco idosis, polyarteritis nodosa, Mj granulomatosis are all pending at this time. Given the signifi cant improvement in her clinical status and the length of time needed to follow up on some of these l abs, I would consider discharging the patient to have her follow up in the GI clinic as an outpatient once the workup for tuberculosis has been exhausted. RECOMMENDATIONS: 1. We will follow up on the current infectious workup. 2. We will follow up on the hemolysis labs given slightly elevated total bilirubin with normal direc t bilirubinemia concerning for intravascular hemolysis. 3. Given improvement in her clinical status, if the workup for the possible TB is negative, we would consider discharge to home and follow up in the GI clinic within 2 weeks of discharge. We will sign off at this time. Please call with any additional questions.
[2017-12-12] MEDS: Lisinopril/Hydrochlorothiazide 20 mg/12.5 mg Tablet PO SCH (07:24)
[2017-12-12] MEDS: Ferrous Sulfate 325 MG TAB PO SCH ×2 (07:24→18:18)
[2017-12-12] MEDS: FLUoxetine HCl 20 MG CAP PO SCH ×3 (07:24→20:40)
--- NOTE | 2017-12-12 07:44 | PDOC.FM ---
- Subjective Subjective: No acute events overnight. Pt has not been able to provide the third sputum sample. However, the first two have been negative. - Objective Vital Signs & Weight: Vital Signs (12 hours) Temp Pulse Resp BP BP BP Pulse Ox 12/12/17 07:41 97.9 F 78 16 161/79 H 98 12/12/17 07:24 79 168/79 H 12/12/17 06:08 79 16 98 12/11/17 23:19 82 18 99 12/11/17 20:00 98.3 F 79 20 115/61 99 Weight Weight 98.883 kg I&O: 12/11/17 12/12/17 12/13/17 06:59 06:59 06:59 Intake Total 1830 1000 Balance 1830 1000 Result Diagrams: 12/11/17 03:45 12/11/17 03:45 <Kateryna Kathleen - Last Filed: 12/12/17 13:35> - Objective Vital Signs & Weight: Vital Signs (12 hours) Temp Pulse Resp BP BP Pulse Ox 12/12/17 15:18 76 18 97 12/12/17 08:00 97.9 F 78 16 12/12/17 07:41 97.9 F 78 16 161/79 H 98 12/12/17 07:24 79 168/79 H Weight Weight 98.883 kg I&O: 12/11/17 12/12/17 12/13/17 06:59 06:59 06:59 Intake Total 1830 1000 Balance 1830 1000 Result Diagrams: 12/11/17 03:45 12/11/17 03:45 <Ann Francois - Last Filed: 12/12/17 19:17> Phys Exam - Physical Examination Constitutional: NAD HEENT: PERRLA, moist MMs Respiratory: no wheezing, no rales, clear to auscultation bilateral Cardiovascular: RRR, no significant murmur Gastrointestinal: soft, non-tender, no distention Musculoskeletal: no edema, pulses present Neurological: non-focal, normal sensation Psychiatric: normal affect, A&O x 3 Skin: no rash <Kateryna Kathleen - Last Filed: 12/12/17 13:35> Dx/Plan (1) Hyperbilirubinemia Code(s): E80.6 - OTHER DISORDERS OF BILIRUBIN METABOLISM Status: Acute (2) Granulomatous disease Code(s): D71 - FUNCTIONAL DISORDERS OF POLYMORPHONUCLEAR NEUTROPHILS Status: Acute (3) Adrenal mass Status: Acute (4) SHERI (acute kidney injury) Code(s): N17.9 - ACUTE KIDNEY FAILURE, UNSPECIFIED Status: Acute (5) Community acquired pneumonia Code(s): J18.9 - PNEUMONIA, UNSPECIFIED ORGANISM Status: Acute (6) Depression Code(s): F32.9 - MAJOR DEPRESSIVE DISORDER, SINGLE EPISODE, UNSPECIFIED Status : Acute (7) Elevated LFTs Code(s): R79.89 - OTHER SPECIFIED ABNORMAL FINDINGS OF BLOOD CHEMISTRY Status : Acute (8) HTN (hypertension) Code(s): I10 - ESSENTIAL (PRIMARY) HYPERTENSION Status: Acute (9) Microcytic anemia Code(s): D50.9 - IRON DEFICIENCY ANEMIA, UNSPECIFIED Status: Acute (10) Mild dehydration Code(s): E86.0 - DEHYDRATION Status: Acute - Plan Plan: Sepsis 2/2 RUL CAP vs UTI -Concern for tb, AFB smear and culture 2/3 negative. Quanteferon pending. -We will continue abx and broaden our infectious work-up to include: histoplasmosis, which is pending. -HIV negative, RPR negative. Urine Strep and Legionalla Ag negative - Blood and urine cultures NGTD - CXR shows RUL opacity and right hilar lymph node prominence - Continue Ceftriaxone and Azithromycin. Maintenance fluids. Duonebs scheduled q6 hrs. Hyperbilirubinemia and Granulomatous disease -direct and indirect bilirubin elevated -CBD 7mm-->unlikely obstructive process -Hemolysis labs: LDH elevated and retic count; pending haptoglobin and peripheral smear -Pending PANCA and CANCA to evaluate for sarcoid vs wegeners vs polyarteritis nodosa -If above workup negative will consider autoimmune hepatitis, wilsons disease, and alpha 1 antitrypsin -GI consulted. Appreciate recommendations above. -If AFB smear negative, will discharge pt with close GI follow-up. Adrenal Mass- -Found incidentally. Adrenal protocol CT with and without contrast recommended nonemergently. Possible viral gastroenteritis - Maintenance IVF. Zofran PRN. Continue to monitor. UTI - Pt has fever, leukocytosis, frequency, and UA suggestive of infection. Urine culture NGTD. Continue Ceftriaxone. SHERI vs CKD - Unclear baseline function. Improved with fluids. Mild Dehydration -Plan as above Microcytic anemia - Iron low, Ferritin low normal, TIBC wnl-->may be early signs of iron deficient anemia -Will start PO iron Thrombocytosis - Likely reactive, trend. GERD - Famotidine HTN - Resume home meds. Depression -continue home med <Kateryna Kathleen - Last Filed: 12/12/17 13:35> Attending Addendum - Attending Addendum Date/Time: 12/12/171910 I personally evaluated the patient and discussed the management with Dr. Kathleen. I agree with the History, Examination, Assessment and Plan documented above with any addition or exceptions noted below. The patient will give 1 more sputum sample today. If negative, she may get to go home and f/u as an outpt. <Ann Francois - Last Filed: 12/12/17 19:17>
[2017-12-12] MEDS ORDERED: Sodium Chloride 0.9% 15 ML NEB NEB SCH (13:47)
[2017-12-12 16:16] LABS: Cytoplasmic (C-ANCA) <1:20 titer (Neg:<1:20); Myeloperoxidase AutoAbs <9.0 U/mL (0.0-9.0); Perinuclear (P-ANCA) <1:20 titer (Neg:<1:20); Proteinase-3 AutoAbs Less than 3.5 U/mL (0.0-3.5)
[2017-12-12] MEDS: cefTRIAXone\\ROCEPHIN 1 GM, Syringe 0.4 ML in Sterile Water 9.6 ML SLOW IVP SCH (18:18)
[2017-12-12] MEDS: Azithromycin 250 MG TAB PO SCH (20:39)
[2017-12-13 05:59] LABS: #Basophils 0.1 thou/uL (0.0-0.2); #Eosinphils 0.3 thou/uL (0.0-0.7); #Lymphocytes 3.2 thou/uL (1.20-3.40); #Monocytes 0.7 thou/uL (0.11-0.59); #Neutrophils 3.5 thou/uL (1.40-6.50); %Basophils 1.5 % (0.0-1.0); %Lymphocytes 41.6 % (21.0-51.0); %Monocytes 8.3 % (0.0-10.0); %Neutrophils 44.6 % (42.0-75.0); Hemoglobin 9.5 g/dL (12.0-16.0); Mean Corpuscular HGB CONC 31.7 g/dL (32.0-36.0); Mean Corpuscular Hemoglobin 25.1 pg (27.0-31.0); Mean Platelet Volume 6.7 fL (7.4-10.4); Platelet Count 546 thou/uL (130-400); RBC Distribution Width 16.9 % (11.5-14.5); Red Blood Cell (RBC) Count 3.79 mill/uL (4.20-5.40); White Blood Cell (WBC) Count 7.8 thou/uL (4.8-10.8)
[2017-12-13 06:12] LABS: ALT (SGPT) 126 U/L (8-55); AST (SGOT) 56 U/L (5-34); Albumin 3.6 g/dL (3.4-4.8); Alkaline Phosphatase 142 U/L (40-150); Anion Gap 13 mmol/L (10-20); BUN (Urea Nitrogen) 5 mg/dL (9.8-20.1); Bilirubin, Direct 0.2 mg/dL (0.1-0.3); Bilirubin, Total 0.4 mg/dL (0.2-1.2); Calc. Creatinine Clearance 111 mL/min (70-130); Calcium 9.7 mg/dL (7.8-10.44); Carbon Dioxide 25 mmol/L (23-31); Chloride 103 mmol/L (98-107); Estimated GFR-MDRD 86; Globulin 3.5 g/dL (2.4-3.5); Glucose 92 mg/dL (80-115); Potassium 3.9 mmol/L (3.5-5.1); Protein, Total 7.1 g/dL (6.0-8.3); Sodium 137 mmol/L (136-145)
[2017-12-13] MEDS: FLUoxetine HCl 20 MG CAP PO SCH ×2 (07:53→15:14)
[2017-12-13] MEDS: Ferrous Sulfate 325 MG TAB PO SCH (07:53)
--- NOTE | 2017-12-13 08:21 | PDOC.FM ---
Addendum entered and electronically signed by Kateryna Kathleen MD 12/13/17 09:21: haptoglobin normal @ 192, direct raimundo negative, PANCA <1:20, CANCA <1:20, histoplasmosis <.5, myeloperoxidase antibody <9, Prtn autoantibody <3.5 Original Note: - Subjective Subjective: No acute events overnight. Pt feels well this morning. Denies coughing or shortness of breath. She was able to cough up sputum for her third AFB sputum sample yesterday, results pending. - Objective MAR Reviewed: Yes Vital Signs & Weight: Vital Signs (12 hours) Temp Pulse Resp BP Pulse Ox 12/13/17 07:58 98.3 F 80 16 12/13/17 07:29 98.3 F 80 16 126/72 95 Weight Weight 98.883 kg I&O: 12/12/17 12/13/17 12/14/17 06:59 06:59 06:59 Intake Total 1000 Balance 1000 Result Diagrams: 12/13/17 04:58 12/13/17 04:58 <Kateryna Kathleen - Last Filed: 12/13/17 08:25> - Objective Vital Signs & Weight: Vital Signs (12 hours) Temp Pulse Resp BP BP Pulse Ox 12/13/17 09:50 80 139/82 12/13/17 07:58 98.3 F 80 16 12/13/17 07:29 98.3 F 80 16 126/72 95 Weight Weight 98.883 kg I&O: 12/12/17 12/13/17 12/14/17 06:59 06:59 06:59 Intake Total 1000 Balance 1000 Result Diagrams: 12/13/17 04:58 12/13/17 04:58 <Ann Francois - Last Filed: 12/13/17 13:03> Phys Exam - Physical Examination Constitutional: NAD HEENT: PERRLA, moist MMs Respiratory: no wheezing, no rales, clear to auscultation bilateral Cardiovascular: RRR, no significant murmur Gastrointestinal: soft, non-tender, no distention Musculoskeletal: no edema, pulses present Neurological: non-focal Psychiatric: normal affect, A&O x 3 Skin: no rash, normal turgor, cap refill <2 seconds <Kateryna Kathleen - Last Filed: 12/13/17 08:25> Dx/Plan (1) Community acquired pneumonia Code(s): J18.9 - PNEUMONIA, UNSPECIFIED ORGANISM Status: Acute QualifierTitle: Laterality: right Lung location: upper lobe of lung Qualified Code(s): J18.1 - Lobar pneumonia, unspecified organism (2) Hyperbilirubinemia Code(s): E80.6 - OTHER DISORDERS OF BILIRUBIN METABOLISM Status: Acute (3) Granulomatous disease Code(s): D71 - FUNCTIONAL DISORDERS OF POLYMORPHONUCLEAR NEUTROPHILS Status: Acute (4) Depression Code(s): F32.9 - MAJOR DEPRESSIVE DISORDER, SINGLE EPISODE, UNSPECIFIED Status : Chronic (5) Elevated LFTs Code(s): R79.89 - OTHER SPECIFIED ABNORMAL FINDINGS OF BLOOD CHEMISTRY Status : Acute (6) HTN (hypertension) Code(s): I10 - ESSENTIAL (PRIMARY) HYPERTENSION Status: Acute QualifierTitle: Hypertension type: essential hypertension Qualified Code( s): I10 - Essential (primary) hypertension (7) Microcytic anemia Code(s): D50.9 - IRON DEFICIENCY ANEMIA, UNSPECIFIED Status: Acute (8) Adrenal mass Status: Acute - Plan Plan: Sepsis 2/2 RUL CAP vs UTI -Concern for tb, AFB smear and culture 2/3 negative. Quanteferon pending. -We will continue abx and broaden our infectious work-up to include: histoplasmosis, which is pending. -HIV negative, RPR negative. Urine Strep and Legionalla Ag negative - Blood and urine cultures NGTD - CXR shows RUL opacity and right hilar lymph node prominence - Continue Ceftriaxone and Azithromycin. Maintenance fluids. Duonebs scheduled q6 hrs. - If third AFB smear is negative, pt can be discharged home on omnicef and azithromicin with follow-u with her PCP as well as GI follow-up. Hyperbilirubinemia and Granulomatous disease -direct and indirect bilirubin elevated -CBD 7mm-->unlikely obstructive process -Hemolysis labs: LDH elevated and retic count; pending haptoglobin and peripheral smear -Pending PANCA and CANCA to evaluate for sarcoid vs wegeners vs polyarteritis nodosa -If above workup negative will consider autoimmune hepatitis, wilsons disease, and alpha 1 antitrypsin -GI consulted. Appreciate recommendations above. -If AFB smear negative, will discharge pt with close GI follow-up. Adrenal Mass- -Found incidentally. Adrenal protocol CT with and without contrast recommended nonemergently. Possible viral gastroenteritis - Maintenance IVF. Zofran PRN. Continue to monitor. UTI - Pt has fever, leukocytosis, frequency, and UA suggestive of infection. Urine culture NGTD. Continue Ceftriaxone. Microcytic anemia - Iron low, Ferritin low normal, TIBC wnl-->may be early signs of iron deficient anemia -Will start PO iron GERD - Famotidine HTN - continue home meds. Depression -continue home med <Kateryna Kathleen - Last Filed: 12/13/17 08:25> Attending Addendum - Attending Addendum Date/Time: 12/13/17 1302 I personally evaluated the patient and discussed the management with Dr. Kathleen. I agree with the History, Examination, Assessment and Plan documented above with any addition or exceptions noted below. The patient is sitting up in a chair wanting to go home. Waiting on 3rd sputum sample, which should return this afternoon. If negative, will d/c home. <Ann Francois - Last Filed: 12/13/17 13:03>
[2017-12-13] MEDS: Lisinopril/Hydrochlorothiazide 20 mg/12.5 mg Tablet PO SCH (09:50)
[2017-12-13 15:40] VITALS: BP 152/73; TEMP 98.5
--- NOTE | 2017-12-14 15:49 | DIS-2 ---
DATE OF ADMISSION: 12/08/2017 DATE OF DISCHARGE: 12/13/2017 RESIDENT: Dr. Kateryna Kathleen. ATTENDING: Dr. Ann Francois. CONSULTATION: Gastroenterology, Dr. Ed Mackenzie. IMAGING: Abdominal ultrasound, mildly prominent common duct. Liver demonstrates no evidence for mass or intrahepatic biliary ductal dilatation, visualized pancreas , IVC, and abdominal aorta appeared normal. The kidneys demonstrate no hydronephrosis or mass. The spleen is not enlarged and demonstrates no focal abnormality. Gallbladder demonstrates no stones, wall thickening, or pericholecystic fluid. The common duct is mildly prominent measuring about [address] scan of abdomen, no CT evidence of ureteral calculi or obstruction. Calcified granulomas in the liver and spleen. Small hiatal hernia, sigmoid diverticulosis. A 2-cm left renal mass. Chest x-ray right upper lobe opacity. PRIMARY DIAGNOSES: 1. Sepsis secondary to right upper lobe community-acquired pneumonia versus urinary tract infection. 2. Hyperbilirubinemia. 3. Granulomatous disease. 4. Incidental adrenal mass. 5. Viral gastroenteritis. 6. Urinary tract infection. SECONDARY DIAGNOSES: 1. Macrocytic anemia. 2. Gastroesophageal reflux disease. 3. Hypertension. 4. Depression. DISCHARGE MEDICATIONS: 1. Azithromycin 250 mg oral daily. 2. Cefdinir 300 mg oral q.12 hours. 3. Lisinopril/hydrochlorothiazide 1 tab oral daily. 4. Fluoxetine 60 mg oral daily. 5. Diltiazem 180 mg oral daily. HISTORY OF PRESENT ILLNESS AND HOSPITAL COURSE: Ms. Cheri Donahue is a 62-year- old -[place] female with a past medical history of hypertension, depression, who initially presented with a productive cough. She endorsed that it was a bloody cough. She also reports episodes of nausea and vomiting. She has 3 loose stools of the last few days. She also endorses fevers and chills and feeling weak. Her blood pressure on admission was within normal limits of 108/66, pulse of 79, respiratory rate of 16, satting 96% on room air and temperature of 99.7. Her breathing was unlabored and clear to auscultation bilaterally on admission, her heart was regular rate and rhythm. She had normal bowel sounds. Negative Ellison's. Mild suprapubic tenderness on admission. She was admitted for sepsis secondary to suspected right upper lobe pneumonia. The chest x-ray revealed a right upper lobe opacity presumed to represent pneumonia. She has had a CT scan of her abdomen that showed no evidence of an UT calculus or obstruction. There were calcified granulomas in the liver and spleen as well as a small hiatal hernia noted. She initially presented to the [facility] with a fever of 101 and leukocytosis. Blood and urine cultures were obtained and urine showed no growth in 36 hours. Blood cultures showed no growth in 5 days. Also, due to coughing up blood tinged sputum, acid-fast bacilli smear and cultures were provided and there were four smears completed that were negative for acid-fast bacilli, three of the four cultures showed no acid-fast bacilli isolated at 2 weeks. The fourth culture is per the two-week read is still pending, but there are three showing up no acid-fast bacilli in 2 weeks. For her pneumonia, she was started on ceftriaxone and azithromycin. Urine strep and Legionella were ordered which were negative. Throughout the course of her hospital stay, her cough and sputum production improved. She was also provided with DuoNeb p.r.n. and she was ultimately discharged to complete a course of antibiotics of Omnicef and azithromycin for her pneumonia. QuantiFERON Gold was ordered for TB and as stated before, the acid-fast bacilli smears and cultures were negative. 1. Hyperbilirubinemia. She was found to have an elevated direct and indirect bilirubin. Her CT abdomen showed granulomas of the liver. Right upper quadrant ultrasound results are as stated above. HIV, RPR, and hepatitis were all within normal limits. Common bile duct was 7 mm, unlikely obstructive process. Hemolysis labs were ordered of LDH that was elevated in a reticulocyte count that was elevated and normal haptoglobin, pANCA and cANCA were ordered and were pending upon discharge to further work up the patient for sarcoidosis versus Mj's versus polyarteritis nodosa. Other things in the differential to include her autoimmune hepatitis, Gabriel disease, alpha-1 antitrypsin deficiency. Gastroenterology was consulted who recommended the above workup. We appreciate their recommendations since the acid-fast bacilli smear was negative. The patient was discharged with close followup. 2. Granulomatous disease as stated above. 3. Adrenal mass. This was found incidentally on the CT and we recommended outpatient CT protocol with and without contrast for non-emergently. 4. Possible viral gastroenteritis. The patient was provided with IV fluids, Zofran, her nausea and vomiting, resolved. 5. Urinary tract infection. She had fever, leukocytosis sometimes with frequency and a UA result suggests infection, but her urine culture did not grow anything; however, she was provided with ceftriaxone and azithromycin for her pneumonia. The ceftriaxone should cover for any urinary tract infection. 6. Microcytic anemia. She had low iron. Her ferritin was low normal and TIBC was within normal limits; however, this may be early signs of iron deficient anemia, we did start p.o. iron. 7. Gastroesophageal reflux disease. She continued on famotidine. 8. Hypertension. We continued her home meds. 9. Depression, we will continue her home meds. DISCHARGE INSTRUCTIONS: 1. Disposition: Stable. 2. Discharged: To home. 3. Followup: It was recommended that she follow up with her primary care physician within 1-2 weeks and GI within 2 weeks. 4. Diet: Heart healthy. 5. Activity: As tolerated. MTDD
== END 2017-12-13 16:56 | disposition home or self-care (01) | DRG 871 ==
LOC: ERS 19:36 → T4-A 20:25
PROVIDERS: ADMIT Family Medicine; ATTEND Family Medicine
DX: A41.9 Sepsis, unspecified organism (principal); J18.9 Pneumonia, unspecified organism; N17.9 Acute kidney failure, unspecified; N39.0 Urinary tract infection, site not specified; D71 Functional disorders of polymorphonuclear neutrophils; E86.0 Dehydration; E78.5 Hyperlipidemia, unspecified; I10 Essential (primary) hypertension; K21.9 Gastro-esophageal reflux disease without esophagitis; Z79.899 Other long term (current) drug therapy; F32.9 Major depressive disorder, single episode, unspecified; Z88.8 Allergy status to other drugs, medicaments and biological substances; Z91.048 Other nonmedicinal substance allergy status; E80.6 Other disorders of bilirubin metabolism; R79.89 Other specified abnormal findings of blood chemistry; E27.9 Disorder of adrenal gland, unspecified; A08.4 Viral intestinal infection, unspecified; D64.9 Anemia, unspecified; D47.3 Essential (hemorrhagic) thrombocythemia
CPT/HCPCS: 36415; 76700; 80053; 82164; 82248; 82570; 82728; 83010; 83520; 83540; 83550; 83615; 83735; 84132; 84300; 85025; 85046; 85060; 86256; 86480; 86593; 86704; 86705; 86706; 86707; 86708; 86780; 86880; 87116; 87206; 87340; 87350; 87385; 87389; 87521; 87899; 94640; 99285; A4216; A4218; J0696; J7620; Q0162